=== PATIENT | female | born 1990 | race African-American/Black ===

== ENCOUNTER 2016-10-16 02:54 | Emergency (ER) | payer OTHER ==
[~2016-10-16] VITALS: Ht 167.6 cm; Wt 83.4 kg
[2016-10-16] MEDS ORDERED: AMOXICILLIN500 MG PO (03:15)
[2016-10-16 04:14] LABS: HEMATOCRIT 36.4 % (37.0-47.0); IMMATURE GRANULOCYTES 0.2 % (0.0-1.0); MEAN CELL VOLUME 91.5 fL CALC (80.0-100.0); MEAN CORPUSCULAR HGB 30.2 pG CALC (26.0-32.0); NEUT# 4.76 thou/uL (2.00-7.15); RED BLOOD COUNT 3.98 mill/uL (4.20-5.60); RED CELL DISTRI WIDTH 14.4 % (11.5-15.5)
[2016-10-16 04:24] LABS: ANION GAP 15 (6-22 (CALC)); BUN 13 mg/dL (7-17); BUN/CREATININE RATIO 19 (12-20 (CALC)); CALCIUM 9.3 mg/dL (8.4-10.2); CARBON DIOXIDE 23 mmol/l (22-30); CHLORIDE 108 mmol/l (95-108); CREATININE 0.7 mg/dL (0.5-1.0); GFR > 60 ML/MIN (>=60 (CALC)); GFR FOR AFR.AMER. > 60 ML/MIN (>=60 (CALC)); GLUCOSE 90 mg/dL (65-105); POTASSIUM 4.1 mmol/l (3.5-5.1); SODIUM 141 mmol/l (137-146)
[2016-10-16] MEDS ORDERED: PERCOCET 5/325M1 TAB PO (05:36)
[2016-10-16 05:42] VITALS: BP 144/88
== END 2016-10-16 05:53 | disposition home or self-care (01) | DRG 159 ==
LOC: ED 02:54
PROVIDERS: Emergency Medicine
DX: R68.84 Jaw pain (principal); F17.210 Nicotine dependence, cigarettes, uncomplicated
CPT/HCPCS: Q9967

== ENCOUNTER 2017-02-20 12:17 | Emergency (ER) | payer SELFPAY ==
[~2017-02-20] VITALS: Ht 167.6 cm; Wt 80.0 kg
[~2017-02-20 12:17] MED LIST: AMOXICILLIN500 MG PO; PERCOCET 5/325M1 TAB PO
[2017-02-20] MEDS ORDERED: MOTRIN800 MG PO (13:25)
[2017-02-20 13:50] VITALS: BP 139/74
== END 2017-02-20 13:50 | disposition home or self-care (01) | DRG 563 ==
LOC: ED 12:17
DX: S63.501A Unspecified sprain of right wrist, initial encounter (principal); F17.210 Nicotine dependence, cigarettes, uncomplicated; X50.0XXA Overexertion from strenuous movement or load, initial encounter; Y93.89 Activity, other specified; Y92.59 Other trade areas as the place of occurrence of the external cause; Y99.0 Civilian activity done for income or pay

== ENCOUNTER 2017-10-03 00:31 | Emergency (ER) | payer OTHER, BC ==
[~2017-10-03] VITALS: Ht 167.6 cm; Wt 76.8 kg
[~2017-10-03 00:31] MED LIST changes: +MOTRIN800 MG PO
[2017-10-03] MEDS ORDERED: TRAMADOL HCL50 MG PO (01:20)
[2017-10-03 01:38] VITALS: BP 140/92
== END 2017-10-03 01:39 | disposition home or self-care (01) | DRG 552 ==
LOC: ED 00:31
DX: S16.1XXA Strain of muscle, fascia and tendon at neck level, initial encounter (principal); V44.5XXA Car driver injured in collision with heavy transport vehicle or bus in traffic accident, initial encounter; Y92.414 Local residential or business street as the place of occurrence of the external cause